=== PATIENT | male | born 1975 ===

== ENCOUNTER 2017-12-28 07:16 | Day surgery (SDC) | payer SELFPAY ==
[2017-12-28 09:04] VITALS: BMI 30.5
[2017-12-28] MEDS ORDERED: Bupivacaine 0.5% Inj(30mL) ONE (09:34)
[2017-12-28] MEDS ORDERED: Propofol 10 mg/ml Inj (20 ML) ONE (10:26)
[2017-12-28] MEDS ORDERED: Lidocaine 4% (Laryng-O-Jet) Kit MM ONE (10:27)
[2017-12-28] MEDS ORDERED: Rocuronium 10 mg/ml (5 ml) ONE (10:27)
[2017-12-28] MEDS ORDERED: Succinylcholine 200 mg/10 ml Inj IV ONE (10:28)
[2017-12-28] MEDS ORDERED: Phenylephrine 10 mg/ml Inj ONE (10:29)
[2017-12-28] MEDS ORDERED: Lactated Ringer's 1,000 ML IV ONE (10:30)
[2017-12-28] MEDS ORDERED: Midazolam 2 MG/2 ML VIAL ONE (10:32)
[2017-12-28] MEDS ORDERED: Dexamethasone 4 mg/1 ml ONE (10:45)
[2017-12-28] MEDS ORDERED: cefTRIAXone (Rocephin) 1 gm Inj IVPB ONE (10:45)
[2017-12-28] MEDS ORDERED: Bupivacaine 0.5% 50 ML IJ ONE (11:27)
[2017-12-28] MEDS ORDERED: Sodium Chloride 0.9% 500 ML IV ONE (11:30)
[2017-12-28] MEDS ORDERED: Lactated Ringer's 1,000 ML IV SCH (12:00)
[2017-12-28] MEDS: HYDROmorphone 0.5 mg/0.5 ml ISec IVP PRN ×3 (12:27→12:58)
--- NOTE | 2017-12-28 13:23 | OP ---
PROCEDURE DATE: 12/28/2017 PREOPERATIVE DIAGNOSIS: Right hydrocele. POSTOPERATIVE DIAGNOSIS: Right hydrocele. PROCEDURE PERFORMED: Right hydrocelectomy. DESCRIPTION OF PROCEDURE: Under general anesthesia, the patient was placed in the operating room table in supine position. The area of the groin was draped and prepped in the sterile manner. Using a horizontal incision over the enlarged right scrotum, the hydrocele was delivered up onto the operative field. I drained the hydrocele, it was over 500 mL of retained clear shari fluid. Once the hydrocele was drained and I removed the good portion of the hydrocele sac and then I inverted the edges and oversewn with 3-0 chromic locking sutures. I did irrigate the area out, there was some small bleeders that were cauterized. Then I replaced the testicle back into the scrotal cavity. I did a 2-layer closure of the wound site with multiple interrupted 3-0 chromic sutures, and placed a dry dressing over the wound site. The patient then was taken from the operating room in good condition. Bruce Georges MD
[2017-12-28 13:28] VITALS: RESP 18; TEMP 98.2; O2SAT 97
[2017-12-28 14:13] VITALS: BP 119/75; PULSE 75
== END 2017-12-28 15:20 | disposition home or self-care (01) ==
LOC: H.OPSURG 07:16
PROVIDERS: ATTEND Urology
DX: N43.3 Hydrocele, unspecified (principal)
CPT/HCPCS: 55040; 88305; J0330; J0696; J1100; J1170; J1885; J2001; J2250; J2370; J2405; J2704; J2765; J3010; J7030; J7040; J7120